=== PATIENT | male | born 1965 | race Caucasian/White ===

== ENCOUNTER 2017-04-04 08:28 | Day surgery (SDC) | payer OTHER ==
[2017-03-30 13:54] VITALS: BMI 28.6
[~2017-04-04 08:28] MED LIST: LACTATED RINGERS 1,000 ML IV SCH; LIDOCAINE 1% 20 ML VIAL (10MG/ML) FOR IV START INTRADERMA PRN
[2017-04-04 08:49] VITALS: TEMP 98.6
[2017-04-04] MEDS ORDERED: LIDOCAINE 1% INJ 10MG/ML (20 ML MDV) ONE (09:19)
[2017-04-04] MEDS ORDERED: PROPOFOL 10 MG/ML 20 ML VIAL IV ONE (09:19)
--- NOTE | 2017-04-04 09:22 | P.GSHP ---
History of Present Illness H&P Date: 04/04/17 Chief Complaint: GI bleed 's is a 51-year-old male referred from Dr. Akbar Love. Patient presents today for colonoscopy. He's had issues with GI bleed. Past Medical History Past Medical History: Hyperlipidemia History of Any Multi-Drug Resistant Organisms: None Reported Past Surgical History: Appendectomy Past Anesthesia/Blood Transfusion Reactions: No Reported Reaction Smoking Status: Never smoker - Past Family History Mother Family Medical History: No Reported History Medications and Allergies Home Medications Medication Instructions Recorded Confirmed Type Rosuvastatin [Crestor] 10 mg PO DAILY 03/30/17 04/04/17 History Allergies Allergy/AdvReac Type Severity Reaction Status Date / Time No Known Allergies Allergy Verified 04/04/17 08:44 Surgical - Exam Vital Signs Temp Pulse Resp BP Pulse Ox 98.6 F 82 18 116/72 96 04/04/17 08:48 04/04/17 08:48 04/04/17 08:48 04/04/17 08:48 04/04/17 08:48 - General well developed, no distress - Eyes PERRL - ENT normal pinna - Neck no masses - Respiratory normal expansion - Cardiovascular Rhythm: regular - Abdomen Abdomen: soft, non tender Assessment and Plan Assessment: Bleed. We'll perform colonoscopy.
--- NOTE | 2017-04-04 09:40 | P.OP ---
Date of Procedure: 04/04/17 Preoperative Diagnosis: GI Bleed Postoperative Diagnosis: Left colon polyp Transverse colon polyp Procedure(s) Performed: Colonoscopy Anesthesia: MAC Surgeon: Jose Campos Pathology: other (Transverse colon polyp, left colon polyp) Condition: stable Disposition: PACU Description of Procedure: The patient's placed on the endoscopy table in the lateral position. He received IV sedation. Digital rectal exam was performed which revealed no abnormalities. Possible was symmetric without nodules. The flexible colonoscope was then placed patient anus and passed throughout the entire colon. The ileocecal valve was visually is. The cecum and ascending colon appeared normal. In the transverse colon is a small polyp seen this removed with the cold forcep. Scope was withdrawn and in the descending colon another WAS seen in this is removed with the snare. Scope was then brought back the sigmoid colon was normal. Scope was brought back into the rectum and this was normal. Scope was withdrawn for patient.
[2017-04-04 09:43] VITALS: RESP 16
[2017-04-04 09:50] VITALS: PULSE 79
[2017-04-04 09:55] VITALS: BP 110/70
== END 2017-04-04 10:12 | disposition home or self-care (01) ==
LOC: ORWHC2ENDO 08:28
PROVIDERS: ATTEND Surgery
DX: D12.4 Benign neoplasm of descending colon (principal); D12.3 Benign neoplasm of transverse colon; E78.5 Hyperlipidemia, unspecified; Z79.899 Other long term (current) drug therapy
CPT/HCPCS: 88305; 45380; 45385; J2001; J2704

== ENCOUNTER → 2017-06-22 | Outpatient (CLI) | payer OTHER ==
--- NOTE | 2017-06-22 16:54 | CONS ---
CONSULTATION DATE OF SERVICE: 06/22/2017 52-year-old gentleman who has been evaluated in the sleep center for possible obstructive sleep apnea-hypopnea syndrome and also for out of dream movements during the sleep. HISTORY OF PRESENT ILLNESS/SLEEP WAKE EVALUATION: SLEEP SCHEDULE: Patient's usual sleep schedule on working days from 10 or 11 p.m. to 5:40 am and on weekends from 11:00 p.m. to 7 or 8 a.m. FALLING ASLEEP: Sometimes he has problem with falling asleep, not more than 30 minutes. He has TV set in bedroom. DURING SLEEP: Usually sleeps on the back position with his . According to her, he has loud snoring and witnessed episodes of stopped breathing during the sleep. The patient wakes up with a grinding teeth, sweating, gasping for air, and nocturia are totally. He wakes up to 4 times and has 2 episodes of nocturia. Sometimes he has out of dream movements with kicking, pushing, punching. No episodes of falling from bed. DURING THE DAY/SLEEP WAKE EVALUATION: No history of hypnagogic hallucinations, sleep paralysis or cataplexy. During the day, the patient wakes up tired falling asleep, has problem with concentration. [place] Sleepiness Scale significantly increased to 13. PAST MEDICAL HISTORY: Positive for hyperlipidemia. PAST SURGICAL HISTORY: Appendectomy, right hand surgery. SOCIAL HISTORY: Negative for smoking. Alcohol consumption occasional. FAMILY HISTORY: Hyperlipidemia. REVIEW OF SYSTEMS: Awakenings from sleep, sleepiness during the day. Some episodes of out of dream movements. PHYSICAL EXAM: 52-year-old gentleman without distress BP 119/83, HR 76, R 16, height 5 feet and 10 inches, weight 206, BMI 29.5. Neck 16-3/4 inches in circumference. Temperature 97.4. Oxygen saturation on room air 97%. Oropharynx moderately low position of soft palate, deep uvula. Short distance between soft palate and pharyngeal wall. No wide neck. Neck Supple, no JVD. Thyroid is not palpable. LUNGS Clear to percussion and to auscultation. Good air exchange. No wheezing or rhonchi. HEART S1, S2 regular. No murmurs, gallops, or rubs. ABDOMEN Soft and nontender. Bowel sounds are present. No organomegaly appreciated. EXTREMITIES No clubbing or cyanosis. DESTINATION IMAGINATION COORDINATOR Awake, alert, and oriented X3. Cranial nerves 2 to 7 intact. There is no fasciculation or atrophy. noted. No focal deficits observed. IMPRESSION: 1. Snoring, witnessed episodes of stopped breathing during the sleep multiple awakenings from sleep, low position of soft palate, wide neck, excessive daytime sleepiness. [place] Sleepiness Scale increased to 13. Obstructive sleep apnea- hypopnea syndrome. 2. History of out of dream movements with kicking, pushing, punching, possible REM sleep behavioral disorder. 3. Hyperlipidemia. 4. Overweight, close to obesity BMI 29.5. 5. Status post appendectomy. 6. Status post right hand surgery. 7. Hyperlipidemia. PLAN: 1. Polysomnography for evaluation of patient's breathing during sleep. 2. CPAP/BiPAP titration if sleep study confirms obstructive sleep apnea-hypopnea syndrome. 3. Preferable position during sleep on the side. 4. No driving if patient feels any sleepiness. 5. I will see patient for follow up visit to explain results of testing and following plan. Thank you very much for referring this patient for consultation. Sincerely, Nash Oconnor MD, PhD, FAASM Diplomat of [employer] Taxation Inspector of [facility] [place] MMODL / IJN: [id number] /
== END | disposition home or self-care (01) ==
LOC: SLEEP 16:04
PROVIDERS: ATTEND Internal Medicine
DX: G47.33 Obstructive sleep apnea (adult) (pediatric) (principal); E78.5 Hyperlipidemia, unspecified; E66.9 Obesity, unspecified; Z68.29 Body mass index [BMI] 29.0-29.9, adult; Z79.899 Other long term (current) drug therapy
CPT/HCPCS: 99211

== ENCOUNTER → 2017-11-01 | Outpatient (CLI) | payer OTHER ==
--- NOTE | 2017-11-02 17:49 | SFUN ---
SLEEP CENTER FOLLOW UP NOTE DATE OF SERVICE: 11/01/2017 52-year-old gentleman who has been followed in Sleep Center for treatment of obstructive sleep apnea-hypopnea syndrome. Recently patient had home sleep apnea test which showed obstructive sleep apnea-hypopnea syndrome with apnea-hypopnea index 20 times per hour. Subsequently, patient was started on treatment with auto PAP. Today is his first visit after he received his CPAP. The patient feels better with the machine, does not have any problem with the usage of the machine. He is using it every night for the whole night without problem. [place] Sleepiness Scale today is 7. I checked his CPAP unit level of pressure 5-20 on automatic regimen. Average pressure is 14.1, leak is 20 L/minute which is acceptable. Apnea-hypopnea index only 0.6, which is totally normal. MEDICATIONS: Crestor. PHYSICAL EXAM: GENERAL Patient in no distress. VITAL SIGNS BP 114/67, HR 64, RR 16, weight 220.2, temperature 98.1. Oxygen saturation on room air 95%. HEENT PERRLA, EOMI, evaluation of oropharynx showed moderately low position of soft palate, big uvula, wide pillars. NECK Supple, no JVD. Thyroid is not palpable. LUNGS Clear to percussion and to auscultation. Good air exchange. No wheezing or rhonchi. HEART S1, S2 regular. No murmurs, gallops, or rubs. ABDOMEN Soft and nontender. Bowel sounds are present. No organomegaly appreciated. EXTREMITIES No clubbing or cyanosis. SHOP MECHANIC HELPER Awake, alert, and oriented X3. Cranial nerves 2 to 7 intact. There is no fasciculation or atrophy. noted. No focal deficits observed. IMPRESSION: 1. Moderate obstructive sleep apnea-hypopnea syndrome. Patient demonstrated great compliance with treatment benefitting from treatment. 2. History of episodes of out of dream behavior during the night. Differential diagnosis include REM sleep behavioral disorder. No any episodes of out of dream movements recently for the last month when patient started to use his machine. 3. Hyperlipidemia. 4. Overweight. 5. Status post appendectomy. 6. Hyperlipidemia. 7. Status post right hand surgery. PLAN: 1. Patient will continue to use CPAP equipment with the same regimen every night for the whole night. 2. Watching and losing weight. 3. Sleep hygiene with regular time in bed for at least 8 hours. 4. No driving if feeling sleepiness. 5. We will follow with prescription for all necessary CPAP supplies including mask, tube, filters. 6. Followup visit in 10 months or earlier if patient has any problems with the usage of CPAP. Thank you very much for allowing me to participate in management of your patient. Sincerely, Nash Oconnor MD, PhD, FAASM Diplomat of [place] [employer] [place] [employer] Automobile Taillight Assembler of [facility] [place] MMODL / IJN: [id number] /
== END | disposition home or self-care (01) ==
LOC: SLEEP 16:33
PROVIDERS: ATTEND Internal Medicine
DX: G47.33 Obstructive sleep apnea (adult) (pediatric) (principal); E78.5 Hyperlipidemia, unspecified; E66.3 Overweight; Z99.89 Dependence on other enabling machines and devices; Z79.899 Other long term (current) drug therapy; Z98.890 Other specified postprocedural states

== ENCOUNTER 2017-11-26 19:34 | Emergency (ER) | payer OTHER ==
[2017-11-26] MEDS ORDERED: DIPH,PERTUS(ACELL)TETVAC-LF 0.5 ML VIAL IM ONE (19:49)
[2017-11-26] MEDS ORDERED: MORPHINE SULFATE 4 MG/ML SYRINGE IM STA (19:49)
[2017-11-26 19:50] VITALS: PULSE 77; RESP 18
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
--- NOTE | 2017-11-26 20:18 | XR ---
EXAMINATION TYPE: XR hand complete LT DATE OF EXAM: 11/26/2017 COMPARISON: NONE HISTORY: Hand pain TECHNIQUE: 3 views FINDINGS: The carpals appear intact. I see no fracture nor dislocation. There are no erosions. IMPRESSION: Negative left hand exam.
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
[2017-11-26] MEDS ORDERED: ACET/COD 300 MG/30 MG STARTER PACK 6 TAB BTL PO STA (21:38)
[2017-11-26 22:01] VITALS: BP 134/64; TEMP 98.3
== END 2017-11-26 22:00 | disposition home or self-care (01) ==
LOC: EC 19:34
DX: S01.81XA Laceration without foreign body of other part of head, initial encounter (principal); S50.812A Abrasion of left forearm, initial encounter; S50.811A Abrasion of right forearm, initial encounter; M79.642 Pain in left hand; M47.812 Spondylosis without myelopathy or radiculopathy, cervical region; E78.5 Hyperlipidemia, unspecified; Z79.899 Other long term (current) drug therapy; Z23 Encounter for immunization; W16.122A Fall into natural body of water striking bottom causing other injury, initial encounter; Y92.814 Boat as the place of occurrence of the external cause
CPT/HCPCS: 73130; 72125; 70450; 90715; 99284; 12052; 90471; 96372; J2270

== ENCOUNTER 2020-05-17 18:23 | Emergency (ER) | payer OTHER ==
[2020-05-17 18:38] VITALS: RESP 18
[2020-05-17] MEDS ORDERED: SODIUM CHLORIDE 0.9% 1,000 ML IV STA (19:00)
--- NOTE | 2020-05-17 19:33 | XR ---
EXAMINATION TYPE: XR chest 1V portable DATE OF EXAM: 05/17/2020 COMPARISON: None HISTORY: Shortness of breath TECHNIQUE: Single frontal view of the chest is obtained. FINDINGS: There is no focal air space opacity, pleural effusion, or pneumothorax seen. The cardiac silhouette size is within normal limits. The osseous structures are intact. IMPRESSION: No acute process.
[2020-05-17 19:40] LABS: Basophils # (A) 0.1 k/uL (0-0.2); Basophils % (A) 1 %; Eosinophils % (A) 0 %; HCT 46.2 % (39.0-53.0); HGB 15.9 gm/dL (13.0-17.5); Lymphocytes % (A) 15 %; MCH 32.4 pg (25.0-35.0); MCHC 34.5 g/dL (31.0-37.0); MCV 93.8 fL (80.0-100.0); Mean Platelet Volume 7.6; Monocytes # (A) 0.5 k/uL (0-1.0); Monocytes % (A) 7 %; Neutrophils # (A) 4.8 k/uL (1.3-7.7); Neutrophils % (A) 75 %; Platelet Count 186 k/uL (150-450); RBC 4.93 m/uL (4.30-5.90); RDW 11.9 % (11.5-15.5); WBC 6.4 k/uL (3.8-10.6)
[2020-05-17 19:44] LABS: INR 0.9 (<1.2)
[2020-05-17 19:45] LABS: Partial Thromboplastin Time 22.2 sec (22.0-30.0)
--- NOTE | 2020-05-17 19:45 | ED ---
SOB HPI - General Chief Complaint: Shortness of Breath Stated Complaint: SOB,COUGHING,FEVER Time Seen by Provider: 05/17/20 19:00 Source: patient, family Mode of arrival: ambulatory - History of Present Illness Initial Comments: Ryan is a 54-year-old male presents the ER today for evaluation of mild shortness of breath cough and body aches. Patient reports that he began have body aches and fatigue approximately 2-1/2 weeks ago, he was tested that time and tested negative for COVID. His subsequently developed COVID and patient has had persistent symptoms which makes him believe he doesn't fact COVID. Patient denies any chest pain or palpitations. He reports feeling like he may be dehydrated, fatigued. - Related Data Home Medications Medication Instructions Recorded Confirmed Rosuvastatin [Crestor] 10 mg PO DAILY 03/30/17 04/04/17 Allergies Allergy/AdvReac Type Severity Reaction Status Date / Time No Known Allergies Allergy Verified 05/17/20 18:37 Review of Systems ROS Statement: Those systems with pertinent positive or pertinent negative responses have been documented in the HPI. ROS Other: All systems not noted in ROS Statement are negative. Past Medical History Past Medical History: Hyperlipidemia History of Any Multi-Drug Resistant Organisms: None Reported Past Surgical History: Appendectomy Additional Past Surgical History / Comment(s): orthopedic surger, finger Past Anesthesia/Blood Transfusion Reactions: No Reported Reaction Past Psychological History: No Psychological Hx Reported Smoking Status: Never smoker Past Alcohol Use History: Occasional Past Drug Use History: None Reported - Past Family History Mother Family Medical History: No Reported History General Exam - General Exam Comments Initial Comments: Physical Exam GENERAL: Patient is well-developed and well-nourished. Patient is nontoxic and well-hydrated and is in no distress. HENT: Normocephalic, Atraumatic. EYES: PERRL, EOMI PULMONARY: Unlabored respirations. CARDIOVASCULAR: RRR Warm and well perfused extremities ABDOMEN: Non-distended SKIN: No rashes or bruising : Deferred NEUROLOGIC: Alert and oriented Normal speech Normal gait MUSCULOSKELETAL: Moving all extremities with no apparent injury PSYCHIATRIC: No SI/HI Course Vital Signs 05/17/20 05/17/20 18:35 20:00 Temperature 99.6 F Pulse Rate 94 78 Respiratory 18 18 Rate Blood Pressure 119/76 O2 Sat by Pulse 94 L 93 L Oximetry Medical Decision Making - Medical Decision Making Patient was seen and evaluated history is obtained from patient and medical record Patient with symptoms for greater than 2 weeks is not a candidate for monoclonal antibodies Labs and x-rays will be obtained Labs consistent with dehydration, patient received 1 L IV fluid while in the e mergency department he is tolerating oral intake we'll continue to take Tylenol Motrin for fever Patient was advised that he is COVID positive, outside of the window for treatment with monoclonal antibodies, has arty completed a course of steroids Patient comfortable with plan for discharge home for supportive care - Lab Data Result diagrams: 05/17/20 19:09 05/17/20 19:09 Lab Results 05/17/20 05/17/20 05/17/20 Range/Units 19: 19: 19:09 WBC 6.4 (3.8-10.6) k/uL RBC 4.93 (4.30-5.90) m/uL Hgb 15.9 (13.0-17.5) gm/dL Hct 46.2 (39.0-53.0) % MCV 93.8 (80.0-100.0) fL MCH 32.4 (25.0-35.0) pg MCHC 34.5 (31.0-37.0) g/dL RDW 11.9 (11.5-15.5) % Plt Count 186 (150-450) k/uL MPV 7.6 Neutrophils % 75 % Lymphocytes % 15 % Monocytes % 7 % Eosinophils % 0 % Basophils % 1 % Neutrophils # 4.8 (1.3-7.7) k/uL Lymphocytes # 1.0 (1.0-4.8) k/uL Monocytes # 0.5 (0-1.0) k/uL Eosinophils # 0.0 (0-0.7) k/uL Basophils # 0.1 (0-0.2) k/uL PT 10.0 (9.0-12.0) sec INR 0.9 (<1.2) APTT 22.2 (22.0-30.0) sec Sodium 136 L (137-145) mmol/L Potassium 4.4 (3.5-5.1) mmol/L Chloride 98 (98-107) mmol/L Carbon Dioxide 27 (22-30) mmol/L Anion Gap 11 mmol/L BUN 22 H (9-20) mg/dL Creatinine 1.33 H (0.66-1.25) mg/dL Est GFR (CKD-EPI)AfAm 71 (>60 ml/min/1.73 sqM) Est GFR (CKD-EPI)NonAf 61 (>60 ml/min/1.73 sqM) Glucose 100 H (74-99) mg/dL Plasma Lactic Acid Roshan (0.7-2.0) mmol/L Calcium 8.7 (8.4-10.2) mg/dL Total Bilirubin 2.1 H (0.2-1.3) mg/dL AST 36 (17-59) U/L ALT 47 (4-49) U/L Alkaline Phosphatase 50 (38-126) U/L Creatine Kinase 98 (55-170) U/L Troponin I (0.000-0.034) ng/mL Total Protein 7.5 (6.3-8.2) g/dL Albumin 4.5 (3.5-5.0) g/dL Coronavirus (PCR) (Not Detectd) 05/17/20 05/17/20 05/17/20 Range/Units 19:09 19:09 19:09 WBC (3.8-10.6) k/uL RBC (4.30-5.90) m/uL Hgb (13.0-17.5) gm/dL Hct (39.0-53.0) % MCV (80.0-100.0) fL MCH (25.0-35.0) pg MCHC (31.0-37.0) g/dL RDW (11.5-15.5) % Plt Count (150-450) k/uL MPV Neutrophils % % Lymphocytes % % Monocytes % % Eosinophils % % Basophils % % Neutrophils # (1.3-7.7) k/uL Lymphocytes # (1.0-4.8) k/uL Monocytes # (0-1.0) k/uL Eosinophils # (0-0.7) k/uL Basophils # (0-0.2) k/uL PT (9.0-12.0) sec INR (<1.2) APTT (22.0-30.0) sec Sodium (137-145) mmol/L Potassium (3.5-5.1) mmol/L Chloride (98-107) mmol/L Carbon Dioxide (22-30) mmol/L Anion Gap mmol/L BUN (9-20) mg/dL Creatinine (0.66-1.25) mg/dL Est GFR (CKD-EPI)AfAm (>60 ml/min/1.73 sqM) Est GFR (CKD-EPI)NonAf (>60 ml/min/1.73 sqM) Glucose (74-99) mg/dL Plasma Lactic Acid Roshan 1.4 (0.7-2.0) mmol/L Calcium (8.4-10.2) mg/dL Total Bilirubin (0.2-1.3) mg/dL AST (17-59) U/L ALT (4-49) U/L Alkaline Phosphatase (38-126) U/L Creatine Kinase (55-170) U/L Troponin I <0.012 (0.000-0.034) ng/mL Total Protein (6.3-8.2) g/dL Albumin (3.5-5.0) g/dL Coronavirus (PCR) Detected A (Not Detectd) - EKG Data -: EKG Interpreted by Fl EKG Comments: EKG was obtained when her shortness breath, EKG was obtained at 1923 rate is 78 rhythm is sinus normal axis, normal intervals, IA 138 QRS 96 QTC [address] elevations or depressions no evidence of ischemia or infarction. Respiratory artifact is noted. Disposition Clinical Impression: COVID-19, Dehydration Disposition: HOME SELF-CARE Condition: Stable Instructions (If sedation given, give patient instructions): Coronavirus Disease 2019 (COVID-19), Dehydration (ED) Is patient prescribed a controlled substance at d/c from ED?: No Referrals: Akbar Bills DO [Primary Care Provider] - 1-2 days
[2020-05-17 19:58] LABS: Albumin 4.5 g/dL (3.5-5.0); Calcium 8.7 mg/dL (8.4-10.2); Potassium 4.4 mmol/L (3.5-5.1); Total Bilirubin 2.1 mg/dL (0.2-1.3); Total Protein 7.5 g/dL (6.3-8.2)
[2020-05-17 20:11] VITALS: PULSE 78
[2020-05-17] MEDS ORDERED: ACETAMINOPHEN TAB 500 MG TAB PO STA (20:48)
[2020-05-17 20:53] VITALS: BP 104/68; TEMP 101.2
== END 2020-05-17 21:15 | disposition home or self-care (01) ==
LOC: EC 18:23
DX: U07.1 COVID-19 (principal); E86.0 Dehydration; E78.5 Hyperlipidemia, unspecified; Z90.49 Acquired absence of other specified parts of digestive tract
CPT/HCPCS: 36415; 71045; 80053; 82550; 83605; 84484; 85025; 85610; 85730; 87635; 93005; 96360; 96361; 99284

== ENCOUNTER 2023-11-06 09:43 | Day surgery (SDC) | payer OTHER ==
[2023-11-06 10:11] VITALS: RESP 16; TEMP 97
[2023-11-06] MEDS: IV FLUID CONTINUATION 1,000 ML IV ONE (10:17)
[2023-11-06] MEDS: LACTATED RINGERS 1,000 ML BAG IV STA (10:17)
[2023-11-06] MEDS ORDERED: PROPOFOL 10 MG/ML 20 ML VIAL IV ONE (11:48)
--- NOTE | 2023-11-06 11:54 | P.GSHP ---
History of Present Illness H&P Date: 11/06/23 Chief Complaint: Screening colonoscopy This a 58-year-old male presents today for screening colonoscopy. Patient denies any significant GI complaints. Past Medical History Past Medical History: Hyperlipidemia History of Any Multi-Drug Resistant Organisms: None Reported Past Surgical History: Appendectomy Additional Past Surgical History / Comment(s): orthopedic surger, finger Past Anesthesia/Blood Transfusion Reactions: No Reported Reaction Past Psychological History: No Psychological Hx Reported Smoking Status: Never smoker Past Alcohol Use History: Occasional Past Drug Use History: None Reported - Past Family History Mother Family Medical History: No Reported History Medications and Allergies Home Medications Medication Instructions Recorded Confirmed Type Rosuvastatin [Crestor] 10 mg PO DAILY 03/30/17 11/06/23 History Allergies Allergy/AdvReac Type Severity Reaction Status Date / Time No Known Allergies Allergy Verified 11/06/23 10:01 Surgical - Exam Vital Signs Temp Pulse Resp BP Pulse Ox 97 F L 65 16 130/78 95 11/06/23 10:10 11/06/23 10:10 11/06/23 10:10 11/06/23 10:10 11/06/23 10:10 - General well developed, well nourished, no distress - Eyes PERRL - ENT normal pinna - Neck no masses - Respiratory normal expansion - Cardiovascular Rhythm: regular - Abdomen Abdomen: soft, non tender Assessment and Plan Assessment: Will perform screening colonoscopy.
[2023-11-06 12:32] VITALS: BP 110/68; PULSE 68
--- NOTE | 2024-01-05 09:40 | P.OP ---
Date of Procedure: 12/07/23 Preoperative Diagnosis: Screening colonoscopy Postoperative Diagnosis: Colon Procedure(s) Performed: Colonoscopy Anesthesia: MAC Surgeon: Jose Campos Pathology: none sent Condition: stable Disposition: PACU Description of Procedure: N PROCEDURE: The patient was placed on the endoscopy table in the lateral position. Digital rectal examination was performed which revealed no abnormalities. The prostate was symmetrical without nodules. Flexible colonoscope was then placed in the patient's anus and passed throughout the entire colon. The ileocecal valve was visualized. The cecum, ascending, transverse, descending and sigmoid colon were normal. The rectum was normal as well. There were no masses, polyps or diverticula noted in the entire colon. SUMMARY OF FINDINGS: Normal colonoscopy.
== END 2023-11-06 12:44 | disposition home or self-care (01) ==
LOC: ORWHC2ENDO 09:43
PROVIDERS: ATTEND Surgery
DX: Z12.11 Encounter for screening for malignant neoplasm of colon (principal); E78.5 Hyperlipidemia, unspecified; F10.90 Alcohol use, unspecified, uncomplicated; Z90.49 Acquired absence of other specified parts of digestive tract; Z79.899 Other long term (current) drug therapy
CPT/HCPCS: 45378